=== PATIENT | male | born 1960 | race Asian ===

== ENCOUNTER 2018-02-27 05:09 | Emergency (ER) | payer BC ==
[~2018-02-27] VITALS: Ht 177.8 cm; Wt 80.7 kg
[2018-02-27 05:18] VITALS: Ht 177.8 cm; Wt 80.7 kg
[2018-02-27 06:27] LABS: CALCIUM 8.6 mg/dL (8.5-10.1); CARBON DIOXIDE 28.9 mmol/L (21-32); CHLORIDE SERUM 105 mmol/L (98-107); CREATININE SERUM 0.8 mg/dL (0.7-1.3); GFR1 > 60 mL/min; GLUCOSE SERUM 103 mg/dL (74-106); POTASSIUM SERUM 3.4 mmol/L (3.5-5.1); SODIUM SERUM 140 mmol/L (136-145)
[2018-02-27 06:41] LABS: ALKALINE PHOSPHATASE 35 U/L (46-116); ALT/SGPT 20 U/L (16-63); AST/SGOT 24 U/L (15-37); FREE T4 0.98 ng/dL (0.76-1.46); TOTAL PROTEIN, SERUM 7.4 g/dL (6.4-8.2)
[2018-02-27 06:57] LABS: BASOPHIL % 0.6 % (0-2); PLATELET COUNT 143 x10^3mcL (130-400); RED CELL DISTRIBUTION WIDTH 12.7 % (11.5-14.5)
[2018-02-27 08:21] LABS: microscopic required? YES; urine erythrocyte 1+ (NEGATIVE)
[2018-02-27 08:28] LABS: AMPHETAMINE QUAL UR NONE DETECTED (NEG <=1000)
[2018-02-27 09:19] VITALS: BP 132/90
== END 2018-02-27 09:34 | disposition home or self-care (01) ==
LOC: ED 05:09
PROVIDERS: Emergency Medicine
DX: R42 Dizziness and giddiness (principal); H93.19 Tinnitus, unspecified ear; I10 Essential (primary) hypertension
CPT/HCPCS: 36415; 84439; G0480; J8597

== ENCOUNTER 2019-05-21 19:20 | Emergency (ER) | payer BC ==
[~2019-05-21] VITALS: Ht 175.3 cm; Wt 72.6 kg
[2019-05-21 19:29] VITALS: Ht 175.3 cm; Wt 72.6 kg
[2019-05-21 21:01] VITALS: BP 116/75
== END 2019-05-21 21:01 | disposition home or self-care (01) ==
LOC: ED 19:20
DX: R00.2 Palpitations (principal); G20 Parkinson's disease; F32.9 Major depressive disorder, single episode, unspecified; R06.02 Shortness of breath